=== PATIENT | female | born 1985 ===

== ENCOUNTER 2017-08-08 16:30 | Emergency (ER) | payer SELFPAY ==
[2017-08-08 16:40] VITALS: RESP 18; TEMP 98.3; O2SAT 100; BMI 29.2
--- NOTE | 2017-08-08 17:05 | ED PDOC ---
Arrival/HPI - General Chief Complaint: Chest Pain Time Seen by Provider: 08/08/17 16:37 Historian: Patient - History of Present Illness Narrative History of Present Illness (Text): 08/08/17 17:06 32 year old female presents to the Emergency department complaining of left sided chest pain since this morning. Patient reports last night she had 2 jello shots that she thought had EtOH in them, but actually had marijuana in them. Patient therefore tried to induce vomiting multiple times yesterday and woke up today with the chest pain. Patient states pain is worsened with movement. Patient also complains of trouble breathing, but thinks this may be secondary to anxiety. Last normal menstrual period was 3 days ago; because of patient's endometriosis, bleeding could be heavy. Patient denies any PE histories such as recent surgeries, long travel, immobilization, leg swelling, leg pain, and oral contraceptive pills. Patient also denies any fever, chills, cough, nausea, vomiting, diarrhea, urinary symptoms, back pain, neck pain, headache, dizziness , or any other complaints. Time/Duration: Other (less than 1 day) Symptom Onset: Gradual Symptom Course: Unchanged Context: Home Past Medical History - Provider Review Nursing Documentation Reviewed: Yes - Infectious Disease Hx of Infectious Diseases: None - Reproductive Menopause: No - Cardiac Hx Cardiac Disorders: No - Pulmonary Hx Respiratory Disorders: No - Endocrine/Metabolic Hx Endocrine Disorders: No - Hematological/Oncological Hx Blood Disorders: No - Musculoskeletal/Rheumatological Hx Musculoskeletal Disorders: No - Gastrointestinal Hx Gastrointestinal Disorders: No - Psychiatric Hx Psychophysiologic Disorder: No Hx Substance Use: No - Anesthesia Hx Anesthesia: No Family/Social History - Physician Review Nursing Documentation Reviewed: Yes Family/Social History: Unknown Family HX Smoking Status: Unknown If Ever Smoked Hx Alcohol Use: No Hx Substance Use: No Allergies/Home Meds Allergies/Adverse Reactions: Allergies shrimp Allergy (Verified 08/08/17 17:43) RASH Review of Systems - Physician Review All systems were reviewed & negative as marked: Yes - Review of Systems Constitutional: absent: Fevers, Night Sweats Respiratory: SOB. absent: Cough Cardiovascular: Chest Pain Gastrointestinal: absent: Diarrhea, Nausea, Vomiting Genitourinary Female: absent: Dysuria Musculoskeletal: absent: Back Pain, Neck Pain Neurological: absent: Headache, Dizziness Physical Exam Vital Signs Reviewed: Yes Vital Signs Temp Pulse Resp BP Pulse Ox 08/08/17 18:07 86 18 131/79 100 08/08/17 16:39 98.3 F 96 H 18 133/89 100 Temperature: Afebrile Blood Pressure: Normal Pulse: Tachycardic Respiratory Rate: Normal Appearance: Positive for: Well-Appearing, Non-Toxic, Comfortable Pain Distress: None Mental Status: Positive for: Alert and Oriented X 3 - Systems Exam Head: Present: Atraumatic, Normocephalic Pupils: Present: PERRL Extroacular Muscles: Present: EOMI Conjunctiva: Present: Normal Mouth: Present: Moist Mucous Membranes Neck: Present: Normal Range of Motion Respiratory/Chest: Present: Clear to Auscultation, Good Air Exchange, Tender to Palpation (left chest wall tenderness). No: Respiratory Distress, Accessory Muscle Use Cardiovascular: Present: Regular Rate and Rhythm, Normal S1, S2. No: Murmurs Abdomen: No: Tenderness, Distention, Peritoneal Signs Back: Present: Normal Inspection Upper Extremity: Present: Normal Inspection. No: Cyanosis, Edema Lower Extremity: Present: Normal Inspection. No: Edema, CALF TENDERNESS Neurological: Present: GCS=15, CN II-XII Intact, Speech Normal Skin: Present: Warm, Dry, Normal Color. No: Rashes Psychiatric: Present: Alert, Oriented x 3, Normal Insight, Normal Concentration Medical Decision Making ED Course and Treatment: 08/08/17 17:14 Impression: 32 year old female presents to the Emergency department complaining of left sided chest pain. Differential Diagnosis included but are not limited to: musculoskeletal vs. anxiety vs. low risk PE Plan: -- Chest xray -- EKG -- Urinalysis, urine test -- Labs -- Toradol, Ativan -- Reassess and disposition Progress Notes: - Lab Interpretations Lab Results: 08/08/17 17:20 08/08/17 17:20 Lab Results 08/08/17 17:20: Urine Opiates Screen Negative, Urine Methadone Screen Negative, Ur Barbiturates Screen Negative, Ur Phencyclidine Scrn Negative, Ur Amphetamines Screen Negative, U Benzodiazepines Scrn Negative, U Oth Cocaine Metabols Negative, U Cannabinoids Screen Positive H 08/08/17 17:20: Sodium 141, Potassium 3.7, Chloride 102, Carbon Dioxide 28, Anion Gap 15, BUN 7, Creatinine 0.5 L, Est GFR ( Amer) > 60, Est GFR (Non -Af Amer) > 60, Random Glucose 101, Calcium 10.4, Magnesium 2.1, Total Bilirubin 0.4, AST 22, ALT 38, Alkaline Phosphatase 73, Lactate Dehydrogenase 466, Total Creatine Kinase 74, Troponin I < 0.01, Total Protein 7.9, Albumin 4.6 , Globulin 3.3, Albumin/Globulin Ratio 1.4 08/08/17 17:20: PT 11.3, INR 0.99, APTT 25.7, D-Dimer, Quantitative < 200 08/08/17 17:20: WBC 8.3, RBC 4.60, Hgb 13.4, Hct 40.4, MCV 87.8, MCH 29.1, MCHC 33.2, RDW 13.9, Plt Count 236, MPV 11.1 H, Gran % 68.3 H, Lymph % (Auto) 25.0, [place] % (Auto) 6.4 H, Eos % (Auto) 0.2 L, Baso % (Auto) 0.1, Gran # 5.67, Lymph # (Auto) 2.1, [place] # (Auto) 0.5, Eos # (Auto) 0.0, Baso # (Auto) 0.01 08/08/17 17:08: Urine Color Yellow, Urine Appearance Clear, Urine pH 6.0, Ur Specific [place] <= 1.005, Urine Protein Negative, Urine Glucose (UA) Negative, Urine Ketones Negative, Urine Blood Trace-lysed H, Urine Nitrate Negative, Urine Bilirubin Negative, Urine Urobilinogen 0.2, Ur Leukocyte Esterase Negative , Urine RBC Negative, Urine WBC 1 - 3, Ur Epithelial Cells 0 - 2, Urine Bacteria Few - RAD Interpretation Narrative RAD Interpretations (Text): 08/08/2017 17:55:09 Chest X-ray FINDINGS: LUNGS: No active pulmonary disease. PLEURA: No significant pleural effusion identified, no pneumothorax apparent. CARDIOVASCULAR: Normal. OSSEOUS STRUCTURES: No significant abnormalities. VISUALIZED UPPER ABDOMEN: Normal. OTHER FINDINGS: None. IMPRESSION: No active disease. Radiology Orders: 08/08/17 16:52 CHEST PORTABLE [RAD] Stat - EKG Interpretation EKG Interpretation (Text): 08/08/17 16:35 EKG: Ordered, reviewed, and independently interpreted the EKG. Rate : 100 BPM Rhythm : NSR Interpretation : No ST-segment elevations or depressions, no T-wave inversions, normal intervals. Interpreted by ED Physician: Yes Type: 12 lead EKG - Medication Orders Current Medication Orders: Discontinued Medications Ketorolac Tromethamine (Toradol) 30 mg IVP STAT STA Stop: 08/08/17 16:54 Last Admin: 08/08/17 17:23 Dose: 30 mg MAR Pain Assessment Document 08/08/17 17:23 LA (Rec: 08/08/17 17:24 LA [id number]) Pain Reassessment Is this a pain reassessment? No Sleep Is patient sleeping during reassessment? No Presence of Pain Presence of Pain Yes Pain Scale Used Pain Scale Used Numeric Location Pain Location Body Site Chest Description Intensity of Pain at present 7 IVP Administration Document 08/08/17 17:23 LA (Rec: 08/08/17 17:24 LA [id number]) Charges for Administration # of IVP Administrations 1 Lorazepam (Ativan) 1 mg PO ONCE ONE PRN Reason: Protocol Stop: 08/08/17 16:54 Last Admin: 08/08/17 17:16 Dose: 1 mg Lorazepam (Ativan) 1 mg PO ONCE ONE PRN Reason: Protocol Stop: 08/08/17 18:19 Last Admin: 08/08/17 18:27 Dose: 1 mg - Scribe Statement The provider has reviewed the documentation as recorded by the Darline Farmer Provider Scribe Attestation: All medical record entries made by the Scribcésar were at my direction and personally dictated by me. I have reviewed the chart and agree that the record accurately reflects my personal performance of the history, physical exam, medical decision making, and the department course for this patient. I have also personally directed, reviewed, and agree with the discharge instructions and disposition. Disposition/Present on Arrival - Present on Arrival History of DVT/PE: No History of Uncontrolled Diabetes: No Urinary Catheter: No History of Decub. Ulcer: No History Surgical Site Infection Following: None - Disposition Diagnosis: Chest pain, Chest wall pain, Anxiety Disposition: HOME/ ROUTINE Patient Problems: Current Active Problems Problem Status Onset Chest pain Acute Chest wall pain Acute Anxiety Acute Condition: IMPROVED Discharge Instructions (ExitCare): Chest Pain, Anxiety, Adult (DC), Costochondritis (DC), Chest Pain (ED) Additional Instructions: Ms Lua, thank you for letting us take care of you today. Your provider was Dr. Mas. You were treated for Chest Wall Musculoskeletal, Chest Pain. The emergency medical care you received today was directed at your acute symptoms. If you were prescribed any medication, please fill it and take as directed. It may take several days for your symptoms to resolve. Return to the Emergency Department if your symptoms worsen, do not improve, or if you have any other problems. Please contact your doctor or call one of the physicians/clinics you have been referred to that are listed on the Patient Visit Information form that is included in your discharge packet. Bring any paperwork you were given at discharge with you along with any medications you are taking to your follow up visit. Our treatment cannot replace ongoing medical care by a primary care provider (PCP) outside of the emergency department. Thank you for allowing the [facility] team to be part of your care today. If you had an X-Ray or CT scan: A Radiologist will review the ED reading if any change in treatment is needed we will contact you. If you had a blood, urine, or wound culture: It will take several days for the results, if any change in treatment is needed we will contact you. If you had an STI test: It will take 48 hours for the results. Please call after 1 week if you have not heard back. Prescriptions: Cyclobenzaprine [Flexeril] 5 mg PO TID PRN #20 tab PRN Reason: Muscle Spasm Ibuprofen [Motrin] 600 mg PO Q6 PRN #30 tab PRN Reason: Pain, Moderate (4-7) Referrals: Marin Frank, [Primary Care Provider] - Follow up with primary Forms: [employer] (Albanian), WORK NOTE
[2017-08-08 17:31] LABS: URINE BILIRUBIN NEGATIVE (NEGATIVE); URINE BLOOD TRACE-LYSED (NEGATIVE); URINE GLUCOSE (UA) NEGATIVE (NEGATIVE); URINE LEUKOCYTE ESTERASE NEGATIVE Leu/uL (NEGATIVE); URINE PROTEIN NEGATIVE mg/dL (<30 mg/dL); URINE UROBILINOGEN 0.2 E.U./dL (<1 E.U./dL)
[2017-08-08 17:33] LABS: URINE APPEARANCE CLEAR (CLEAR); URINE COLOR YELLOW (YELLOW)
[2017-08-08 17:41] LABS: URINE BACTERIA FEW (NEG); URINE EPITHELIAL CELLS 0 - 2 /hpf (0-5); URINE RBC NEGATIVE /hpf (0-2)
[2017-08-08 17:48] LABS: BASO # 0.01 K/mm3 (0.0-2.0); BASO % 0.1 % (0.0-3.0); EOS % 0.2 % (1.5-5.0); GRAN # 5.67 (1.4-6.5); GRAN % 68.3 % (50.0-68.0); HEMOGLOBIN 13.4 g/dL (12.0-16.0); LYMPH # 2.1 (1.2-3.4); MEAN CELL VOLUME 87.8 fl (80.0-105.0); MEAN CORPUSCULAR HEMOGLOBIN 29.1 pg (25.0-35.0); MEAN CORPUSCULAR HGB CONC 33.2 g/dl (31.0-37.0); MEAN PLATELET VOLUME 11.1 fl (7.0-11.0); MONO # 0.5 (0.1-0.6); MONO % 6.4 % (1.0-6.0); RBC 4.6 10^6/uL (3.5-6.1); RED CELL DISTRIBUTION WIDTH 13.9 % (11.5-14.5); WHITE BLOOD COUNT 8.3 10^3/ul (4.5-11.0)
--- NOTE | 2017-08-08 17:56 | RAD ---
HISTORY: chest pain COMPARISON: No prior. FINDINGS: LUNGS: No active pulmonary disease. PLEURA: No significant pleural effusion identified, no pneumothorax apparent. CARDIOVASCULAR: Normal. OSSEOUS STRUCTURES: No significant abnormalities. VISUALIZED UPPER ABDOMEN: Normal. OTHER FINDINGS: None. IMPRESSION: No active disease.
[2017-08-08 17:58] LABS: ALB/GLOB RATIO 1.4 (1.1-1.8); ALBUMIN 4.6 g/dL (3.0-4.8); ALT/SGPT 38 U/L (7-56); AST/SGOT 22 U/L (14-36); BLOOD UREA NITROGEN 7 mg/dL (7-21); CALCIUM 10.4 mg/dL (8.4-10.5); GFR AFRICAN-AMERICAN > 60; GFR NON-AFRICAN AMERICAN > 60
[2017-08-08 18:03] LABS: INR 0.99 (0.93-1.08); PARTIAL THROMBOPLASTIN TIME 25.7 Seconds (25.1-36.5); PROTHROMBIN TIME 11.3 SECONDS (9.4-12.5)
[2017-08-08 18:07] VITALS: BP 131/79; PULSE 86
[2017-08-08 18:10] LABS: TROPONIN I < 0.01 ng/mL
[2017-08-08 18:12] LABS: D DIMER < 200 ng/mL (0-243)
[2017-08-08 18:13] LABS: BARBITURATES, UR NEGATIVE (NEGATIVE); BENZODIAZEPINES, UR NEGATIVE (NEGATIVE); OPIATES, UR NEGATIVE (NEGATIVE); PHENCYCLIDINE, UR NEGATIVE (NEGATIVE)
== END 2017-08-08 19:37 | disposition home or self-care (01) ==
LOC: ED 16:30 → MERGE 16:30 → ED 19:37
DX: R07.89 Other chest pain (principal); F41.9 Anxiety disorder, unspecified
CPT/HCPCS: 71045; 80053; 81001; 82550; 83615; 83735; 84484; 85025; 85378; 85610; 85730; 96374; 99284; G0480; J1885